=== PATIENT | female | born 1995 | race Caucasian/White ===

== ENCOUNTER 2019-06-10 22:57 | Emergency (ER) | payer OTHER ==
[2019-06-10 23:02] VITALS: BP 127/68; PULSE 66; TEMP 98.4; BMI 29.2
[2019-06-10] MEDS ORDERED: IBUPROFEN 600 MG TABLET (FP) PO ONE ×2 (23:13→23:19)
[2019-06-10] MEDS ORDERED: ALBUTEROL SO4 2.5/IPRATROPIUM 0.5 INH SOL 3 ML VIAL.NEB. NEB ONE ×2 (23:14→23:20)
--- NOTE | 2019-06-10 23:24 | PDOC ---
History of Present Illness - General Chief Complaint: Respiratory Stated Complaint: DIFF. BREATHING Time Seen by Provider: 06/10/19 23:05 History Source: Patient Exam Limitations: No Limitations - History of Present Illness Initial Comments: 24-year-old female with past medical history of asthma presented to the emergency department for cough, chest tightness, wheezing, sore throat, body aches, headache beginning this morning. Patient reported she last took Theraflu around 8 PM. She reported she felt chills and sweats but did not take her temperature. She reported that the last time she had episode like this was three years ago on [place], in which her asthma was exacerbated. She reported otherwise she has no asthma complaints for the last few years, was taken off albuterol inhaler and nebulizer, doesnt have either at home. ROS General: admitted to body aches. denied fever, chills, generalized weakness. HEENT: admitted to sore throat. denied rhinorrhea, ear pain. Cardiovascular: denied chest pain, palpitations, syncope, diaphoresis. Respiratory: admitted to shortness of breath, cough. denied sputum production, hemoptysis. Gastrointestinal: admitted to nausea. denied abdominal pain vomiting, diarrhea, constipation, blood in stool. Genitourinary: denied dysuria, increased urinary frequency, hematuria, urinary incontinence, flank pain. Back: denied back pain. Musculoskeletal: denied joint pain, muscle pain, joint swelling. Neurological: denied headache, dizziness, numbness, tingling, weakness. Integumentary: denied rash, laceration, abrasion. Hematologic/Lymphatic: denied bruising or bleeding. PE Constitutional: Well-nourished, Well-developed, appearing stated age. HEENT: head is normocephalic, atraumatic. EOMI. PERRLA. no posterior pharyngeal erythema.no tonsillar swelling or exudates bilaterally. uvula midline. no peritonsillar swelling, tenderness or abscess. no jaw tenderness or misalignment. Neck: supple. Full ROM. Cardiovascular: regular heart rhythm. no murmurs. no pericardial friction rub. Respiratory: right sided wheezing. decreased air movement bilaterally. no crackles. no stridor. no labored breathing. speaking full sentences. Gastrointestinal: soft, nontender. normal bowel sounds. no rebound, guarding, masses. Extremities: peripheral pulses intact. no lower extremity edema. Neurological: CN 2-12 grossly intact. moves all four extremities. Psych: awake, alert, oriented x3. follows commands. answers questions appropriately. Past History - Past Medical History Allergies/Adverse Reactions: Allergies Allergy/AdvReac Type Severity Reaction Status Date / Time No Known Allergies Allergy Verified 06/10/19 23:01 Home Medications: Ambulatory Orders Albuterol 0.083% Nebulizer Mony [Ventolin 0.083% Nebulizer Soln -] 1 neb NEB Q4H PRN #30 vial 06/10/19 Nebulizer Accessories [Adult Aerosol Mask] 1 each QID PRN #1 each 06/10/19 Nebulizer [Compact Compressor Nebulizer] 1 each QID PRN #1 each 06/10/19 Asthma: Yes (no medication at home x 3 yrs) COPD: No - Psycho Social/Smoking Cessation Hx Smoking History: Never smoked *Physical Exam - Vital Signs Last Vital Signs Temp Pulse Resp BP Pulse Ox 98.4 F 66 20 127/68 96 06/10/19 22:58 06/10/19 22:58 06/10/19 22:58 06/10/19 22:58 06/10/19 22:58 ED Treatment Course - RADIOLOGY Radiology Studies Ordered: Category Date Time Status CHEST PA & LAT [RAD] Stat Radiology 06/10/19 23:13 Ordered Medical Decision Making - Medical Decision Making 24 year old female with above PMH presented to ED for body aches, sore throat, chest tightness, wheezing, headache. Pt reported she would like to be flu tested and would take Tamiflu if positive. Initial Vital Signs Temp Pulse Resp BP Pulse Ox 98.4 F 66 20 127/68 96 06/10/19 22:58 06/10/19 22:58 06/10/19 22:58 06/10/19 22:58 06/10/19 22:58 Afebrile. No tachycardia. No tachypnea. No hypotension. No hypoxia on room air. Labs ordered: Influenza testing Imaging ordered: CXR Medications ordered: ibuprofen 600 mg PO once, duoneb 06/10/19 23:47 CXR my view: no infiltrate. no cardiomegaly. no pulmonary vascular congestion. -Pending official report. 06/11/19 00:02 Laboratory Last Values Influenza A (Rapid) Negative (Negative) 06/10/19 23:17 Influenza B (Rapid) Negative (Negative) 06/10/19 23:17 Pt informed of results. Pt reported improvement of symptoms. Pt given education for symptomatic treatment. Pt provided with prescription for albuterol nebulizer solution, nebulizer, nebulizer mask. Pt advised to F/U with PCP. Pt discharged. 06/11/19 18:49 Follow up: Official CXR report: Name: [facility] DEPARTMENT OF RADIOLOGY Phys: Lidya Acosta RESIDENT : [id number] Age: 24 Sex: F [facility] Acct: [id number] Loc: [facility] [address] [facility] Exam Date: 06/10/19 Status: [place] [address] Unit Number: [id number] EXAM#: TYPE/EXAM: RESULT: [id number] RAD/CHEST PA LAT Chest: Cough. 2 views of the chest reveal clear lungs, normal mediastinum and sharp angles. The bones and soft tissues are intact. Impression: No acute chest pathology. Reported By: Nixon Roe MD 06/11/19 0706 Discharge - Discharge Information Problems reviewed: Yes Clinical Impression/Diagnosis: Viral syndrome, Cough Condition: Improved Disposition: HOME - Admission No - Additional Discharge Information Prescriptions: Albuterol 0.083% Nebulizer Mony [Ventolin 0.083% Nebulizer Soln -] 1 neb NEB Q4H PRN #30 vial PRN Reason: Asthma Nebulizer [Compact Compressor Nebulizer] 1 each QID PRN #1 each PRN Reason: Asthma Nebulizer Accessories [Adult Aerosol Mask] 1 each QID PRN #1 each PRN Reason: Asthma - Follow up/Referral - Patient Discharge Instructions Patient Printed Discharge Instructions: DI for Viral Syndrome Additional Instructions: Follow up with your primary care doctor within 3 days regarding your Emergency Room visit. Your care is not complete until you follow up. Take ibuprofen and/or tylenol over the counter for pain/fever/body aches. Take as advised on labels. -Tylenol and ibuprofen are not the same medication and can be safely taken together -Ibuprofen tends to be better for body aches Your influenza testing was negative. I have sent a prescription to your pharmacy for albuterol nebulizer solution and nebulizer. Pick it up tonight and use as every 4-6 hours as needed for shortness of breath. Drink lots of fluid to stay hydrated. Return to the Emergency Department for fever>103F, fever>5 days, continuous vomiting, chest pain, shortness of breath, or any other new, worsening or concerning symptoms. - Post Discharge Activity Work/Back to School Note: Back to School
--- NOTE | 2019-06-10 23:28 | PDOC ---
Attending Attestation - Resident Resident Name: David Acostaa - ED Attending Attestation I have performed the following: I have examined & evaluated the patient, The case was reviewed & discussed with the resident, I agree w/resident's findings & plan - HPI HPI: 06/11/19 22:49 Pt comes with cough and cold and flu like symptoms and feels unwell - Physicial Exam PE: 06/11/19 22:49 Agree with resident exam 06/11/19 22:50 heart and lungs normal abd soft NT ND Pt is not dehydrated; she is tolerating oral food and drink. - Medical Decision Making 06/10/19 23:47 CXR is clear 06/10/19 23:47 Flu culture is pending 06/11/19 22:49 Flu negative; she was hydrated and she is feeling better
== END 2019-06-11 00:10 | disposition home or self-care (01) ==
LOC: JER 22:57
PROC: 3E0F7GC Introduction of Other Therapeutic Substance into Respiratory Tract, Via Natural or Artificial Opening (ICD-10-PCS; principal; 2019-06-10)
DX: B34.9 Viral infection, unspecified (principal)
CPT/HCPCS: 71046-TC-FY; 87804; 99282-25